=== PATIENT | male | born 1960 | race Caucasian/White ===

== ENCOUNTER → 2016-10-28 | Outpatient (CLI) | payer OTHER | END | disposition home or self-care (01) | LOC: CFH 14:04 | PROVIDERS: ATTEND Nurse Practitioner | DX: R91.8 Other nonspecific abnormal finding of lung field (principal) | CPT/HCPCS: 71250 ==

== ENCOUNTER 2016-10-30 23:40 | Emergency (ER) | payer OTHER ==
[~2016-10-30] VITALS: Ht 180.3 cm; Wt 141.1 kg
[2016-10-30 23:50] VITALS: BP 176/71
== END 2016-10-31 01:51 | disposition home or self-care (01) ==
LOC: ED 23:59
DX: B35.3 Tinea pedis (principal); R09.02 Hypoxemia; I10 Essential (primary) hypertension; E66.9 Obesity, unspecified
CPT/HCPCS: 73630; 99284; J7512

== ENCOUNTER 2016-11-13 03:29 | Emergency (ER) | payer OTHER ==
[~2016-11-13] VITALS: Ht 180.3 cm; Wt 130.5 kg
[2016-11-13] MEDS ORDERED: LISI1TAB7 PO (03:41)
[2016-11-13] MEDS ORDERED: OXYC-229 PO (03:41)
[2016-11-13] MEDS ORDERED: ALBU90AE INH (03:41)
[2016-11-13 04:03] LABS: ASPARTATE AMINO TRANSFERASE 39 U/L (15-37); BLOOD UREA NITROGEN 18 mg/dL (7-18)
[2016-11-13] MEDS ORDERED: OMNIPAQUE 350 MG/ML, 100ML BOTTLE ONE (04:03)
[2016-11-13 04:08] LABS: IS PT STATUS REG ER OR PRE ER? YES
[2016-11-13 05:44] VITALS: BP 136/56
== END 2016-11-13 05:46 | disposition home or self-care (01) ==
LOC: ED 03:35
DX: R09.02 Hypoxemia (principal); I10 Essential (primary) hypertension; J44.9 Chronic obstructive pulmonary disease, unspecified; G89.29 Other chronic pain; M54.9 Dorsalgia, unspecified
CPT/HCPCS: 36415; 71010; 71275; 80053; 83880; 84484; 85025; 85379; 93005; 99285; J7512; Q9967

== ENCOUNTER → 2017-01-12 | Outpatient (CLI) | payer OTHER ==
[~2017-01-12] MED LIST: ALBU90AE INH; LISI1TAB7 PO; OXYC-229 PO; REGADENOSON 0.4 MG/5 ML SYRINGE ONE
== END | disposition home or self-care (01) ==
LOC: CFH 10:49
PROVIDERS: ATTEND Internal Medicine Cardiovascular Disease
DX: I51.7 Cardiomegaly (principal); I10 Essential (primary) hypertension
CPT/HCPCS: 78452; 93017; 93306; A9502; J2785

== ENCOUNTER 2017-03-28 14:15 | Emergency (ER) | payer OTHER ==
[~2017-03-28] VITALS: Ht 177.8 cm; Wt 136.6 kg
[~2017-03-28 14:15] MED LIST changes: -OXYC-229 PO; +OXYC-307 PO; -REGADENOSON 0.4 MG/5 ML SYRINGE ONE
[2017-03-28 14:19] VITALS: BP 131/80
[2017-03-28] MEDS ORDERED: DOCUSATE 50 MG/5 ML ORAL SOL ONE (14:46)
[2017-03-28] MEDS ORDERED: DOCUSATE 50 MG/5 ML ORAL SOL PO ONE (15:00)
[2017-03-28] MEDS ORDERED: LIDOCAINE 1%, 20ML SQ ONE (15:30)
== END 2017-03-28 15:44 | disposition home or self-care (01) ==
LOC: ED 15:10
DX: H60.502 Unspecified acute noninfective otitis externa, left ear (principal); H60.12 Cellulitis of left external ear; H61.22 Impacted cerumen, left ear; I10 Essential (primary) hypertension; J44.9 Chronic obstructive pulmonary disease, unspecified; G89.29 Other chronic pain; Z79.891 Long term (current) use of opiate analgesic
CPT/HCPCS: 99283

== ENCOUNTER 2017-06-24 06:32 | Emergency (ER) | payer OTHER ==
[~2017-06-24] VITALS: Ht 180.3 cm; Wt 135.7 kg
[2017-06-24 06:34] VITALS: BP 169/80
[2017-06-24] MEDS ORDERED: STEROID INHALER (06:38)
== END 2017-06-24 07:09 | disposition home or self-care (01) ==
LOC: ED 07:03
DX: K08.89 Other specified disorders of teeth and supporting structures (principal); I10 Essential (primary) hypertension; J44.9 Chronic obstructive pulmonary disease, unspecified; G89.29 Other chronic pain; M54.9 Dorsalgia, unspecified
CPT/HCPCS: 99283

== ENCOUNTER 2017-09-08 22:13 | Emergency (ER) | payer OTHER ==
[~2017-09-08] VITALS: Ht 180.3 cm; Wt 131.5 kg
[~2017-09-08 22:13] MED LIST changes: +STEROID INHALER
[2017-09-08 22:15] VITALS: BP 168/65
== END 2017-09-09 00:01 | disposition home or self-care (01) ==
LOC: ED 23:59
DX: S81.832A Puncture wound without foreign body, left lower leg, initial encounter (principal); J44.9 Chronic obstructive pulmonary disease, unspecified; E66.9 Obesity, unspecified; G89.29 Other chronic pain; X58.XXXA Exposure to other specified factors, initial encounter; Y93.89 Activity, other specified; Y92.89 Other specified places as the place of occurrence of the external cause; Y99.8 Other external cause status
CPT/HCPCS: 99283

== ENCOUNTER → 2017-11-16 | Outpatient (CLI) | payer OTHER ==
[~2017-11-16] MED LIST changes: +CYCL-259 PO; +FLUT100B INH; +NORT10CA PO; +PAIN PUMP
== END | disposition home or self-care (01) ==
LOC: CVU 10:08
PROVIDERS: ATTEND Family Medicine
DX: M71.21 Synovial cyst of popliteal space [Baker], right knee (principal); I86.8 Varicose veins of other specified sites; L81.9 Disorder of pigmentation, unspecified
CPT/HCPCS: 93970

== ENCOUNTER 2018-03-19 18:20 | Emergency (ER) | payer MEDICARE, OTHER ==
[~2018-03-19] VITALS: Ht 180.3 cm; Wt 121.8 kg
[2018-03-19 18:45] VITALS: BP 166/88
== END 2018-03-19 20:03 | disposition home or self-care (01) ==
LOC: ED 19:57
DX: B86 Scabies (principal); I10 Essential (primary) hypertension; G89.29 Other chronic pain; J44.9 Chronic obstructive pulmonary disease, unspecified; E66.9 Obesity, unspecified
CPT/HCPCS: 99283